=== PATIENT | male | born 1990 | race Two or more races ===

== ENCOUNTER 2019-03-21 06:41 | Day surgery (SDC) | payer OTHER ==
[~2019-03-21] VITALS: Ht 180.3 cm; Wt 115.7 kg
[2019-03-21] VITALS (10 sets, daily range): BP systolic 103–123; BP diastolic 56–65
[~2019-03-21 06:41] MED LIST: NKM; ceFAZolin 1gm IVPB IVPB ONE; celeBREX 200mg Cap **SURGERY PATIENTS ONLY ORAL ONE; oxyCONTIN 20mg tab ORAL ONE
--- NOTE | 2019-03-21 07:24 | Operative Note - PDOC ---
Operative Note Operative Note Pre-op Diagnosis: right knee medial menisecus tear Procedure: see op report Post-op Diagnosis: same as pre-op plus Operative Findings: consistent w/pre-op dx studies Anesthesia: MAC Specimen: none Complications: none Condition: stable Estimated Blood Loss: none Implant(s) used?: No Randy Quinonez MD March 21, 2019 07:24
--- NOTE | 2019-03-21 07:24 | Pre-Procedure Note/Attestation ---
Pre-Procedure Note/Attestation Complete Prior to Procedure Planned Procedure: right Procedure Narrative: knee arthroscopy, medial menisectomy Indications for Procedure Pre-Operative Diagnosis: right knee medial menisecus tear Attestation I attest that I discussed the nature of the procedure; its benefits; risks and complications; and alternatives (and the risks and benefits of such alternatives ), prior to the procedure, with the patient (or the patient's legal telephone claims representative). I attest that, if there was a reasonable possibility of needing a blood transfusion, the patient (or the patient's legal telephone claims representative) was given the [facility] standardized written summary, pursuant to the Shyam Everardo Blood Safety Act ([place] Health and Safety Code # 1645, as amended). I attest that I re-evaluated the patient just prior to the surgery and that there has been no change in the patient's H&P, except as documented below: Randy Quinonez MD March 21, 2019 07:24
[2019-03-21] MEDS ORDERED: Lidocaine 1% 10mg/ml/Epi 0.005mg/ml 30ml vial INJ ONE (09:34)
[2019-03-21] MEDS ORDERED: Kenalog-40 1ml Vial ONE (09:34)
[2019-03-21] MEDS ORDERED: EPINEPHrine 1mg/1ml Amp ONE (09:34)
[2019-03-21] MEDS ORDERED: Bupivacaine 0.25% Inj 30ml INJ ONE (09:34)
[2019-03-21] MEDS ORDERED: Duramorph PF 5mg/10ml amp ONE (09:34)
[2019-03-21] MEDS ORDERED: Ketorolac 30mg Inj ONE (09:34)
[2019-03-21] MEDS ORDERED: Dexamethasone 4mg/ml vial ONE (09:38)
[2019-03-21] MEDS ORDERED: Lidocaine 1% MPF 10mg/ml 5ml ONE (09:38)
[2019-03-21] MEDS ORDERED: Alfentanil 2ml Inj ONE (09:38)
[2019-03-21] MEDS ORDERED: LR 1000ml ONE (09:38)
[2019-03-21] MEDS ORDERED: Propofol 200mg/20ml IV ONE (09:38)
[2019-03-21] MEDS ORDERED: NS Irrig 4000ml IRRIG ONE (09:54)
[2019-03-21] MEDS ORDERED: Meperidine 50mg/ml Inj(FOR RIGORS ONLY) IVP PRN (10:00)
[2019-03-21] MEDS ORDERED: Acetaminophen (Non formulary) 100 ML IV ONE (10:00)
[2019-03-21] MEDS ORDERED: DiphenhydrAMINE 50mg/ml Inj IVP PRN (10:00)
[2019-03-21] MEDS ORDERED: LR 1000ml 1,000 ML IVLG SCH (10:00)
[2019-03-21] MEDS ORDERED: fentaNYL 100 mcg/2 mL IV PRN (10:00)
[2019-03-21] MEDS ORDERED: Labetalol 5mg/ml 20ml vial IV PRN (10:00)
[2019-03-21] MEDS ORDERED: Atropine Sulfate 0.4mg/ml inj IVP PRN (10:00)
[2019-03-21] MEDS ORDERED: HYDROcodone/Acetamin 5/325 tab ORAL PRN ×2 (10:00→18:01)
[2019-03-21] MEDS ORDERED: HYDROcodone/Acetamin 7.5/325 tab ORAL PRN (10:00)
[2019-03-21] MEDS ORDERED: Metoclopramide 10mg/2ml Inj IVP PRN (10:00)
[2019-03-21] MEDS ORDERED: Ketorolac 30mg Inj IV PRN ×2 (10:00)
[2019-03-21] MEDS ORDERED: Midazolam 2mg/2ml Inj IVP PRN (10:00)
[2019-03-21] MEDS ORDERED: LORazepam Inj 2mg/ml 1ml IV PRN (10:00)
[2019-03-21] MEDS ORDERED: Hydromorphone 0.5mg/0.5ml inj IVP PRN (10:00)
[2019-03-21] MEDS ORDERED: oxyCODONE HCL/Acetaminophen 5/325mg ORAL PRN (10:00)
--- NOTE | 2019-03-21 10:07 | Anethesia Preoperative Eval ---
Anesthesia Pre-op PMH/ROS General Date of Evaluation: March 21, 2019 Time of Evaluation: 09:38 Anesthesiologist: Naz ASA Score: ASA 2 Mallampati Score Class I : Soft palate, uvula, fauces, pillars visible Class II: Soft palate, uvula, fauces visible Class III: Soft palate, base of uvula visible Class IV: Only hard plate visible Mallampati Classification: Class II Surgeon: Cristiano Diagnosis: R Knee Pain Surgical Procedure: R Knee Arthroscopy Anesthesia History: none Family History: no anesthesia problems Allergies: Coded Allergies: No Known Allergies (Unverified , 03/20/19) Medications: see eMAR Patient NPO?: Yes Past Medical History Gastrointestinal/Genitourinary: Reports: other - Testicular CA Other: obesity - BMI 38 PSxH Narrative: L Testicle Removed 09' Anesthesia Pre-op Phys. Exam Physician Exam Last Vital Signs Date Time Temp Pulse Resp B/P (MAP) Pulse Ox O2 Delivery O2 Flow Rate FiO2 03/21/19 07:31 97.7 50 18 123/57 97 Room Air Constitutional: NAD Neurologic: CN 2-12 intact Cardiovascular: RRR Respiratory: CTA Gastrointestinal: S/NT/ND Airway Exam Mallampati Score: Class II MO: full ROM: limited Teeth: intact Anesthesia Pre-op A/P Risk Assessment & Plan Assessment: ASA 2 Plan: GA, SED Status Change Before Surgery: No Pre-Antibiotics Dru Grams Ancef IV Given Within 1 Hr of Incision: Yes Time Given: 09:51 Scott Childs MD March 21, 2019 10:07
--- NOTE | 2019-03-21 10:08 | Immediate Post-Op Evaluation ---
Immediate Post-Op Evalulation Immediate Post-Op Evalulation Procedure: R Knee Arthroscopy Date of Evaluation: March 21, 2019 Time of Evaluation: 10:35 IV Fluids: 1000 LR Blood Products: 0 Estimated Blood Loss: 3 Urinary Output: 0 Blood Pressure Systolic: 111 Blood Pressure Diastolic: 56 Pulse Rate: 58 Respiratory Rate: 16 O2 Sat by Pulse Oximetry: 100 Temperature (Fahrenheit): 97.2 Pain Score (1-10): 2 Nausea: No Vomiting: No Complications 0 Patient Status: awake, reacts, patent, extubated, none Hydration Status: adequate Dru Grams Ancef IV Given Within 1 Hr of Incision: Yes Time Given: 09:51 Scott Childs MD March 21, 2019 10:08
--- NOTE | 2019-03-21 10:11 | 48 Hour Post Anesthesia Eval ---
Post Anesthesia Evaluation Procedure: R Knee Arthroscopy Date of Evaluation: March 21, 2019 Time of Evaluation: 12:43 Blood Pressure Systolic: 108 0: 54 Pulse Rate: 62 Respiratory Rate: 18 Temperature (Fahrenheit): 98.3 O2 Sat by Pulse Oximetry: 100 Airway: patent Nausea: No Vomiting: No Pain Intensity: 2 Hydration Status: adequate Cardiopulmonary Status: Stable Mental Status/LOC: patient returned to baseline Follow-up Care/Observations: 0 Post-Anesthesia Complications: 0 Follow-up care needed: ready to discharge Scott Childs MD March 21, 2019 10:11
--- NOTE | 2019-03-21 17:30 | Operative Note - Dictated ---
DATE OF OPERATION: 03/21/2019 PREOPERATIVE DIAGNOSES: 1. Right knee medial meniscus tear. 2. Right knee periligamentous cyst. POSTOPERATIVE DIAGNOSES: 1. Right knee symptomatic medial plica. 2. Periligamentous ganglion cyst. 3. Grade 2 chondral damage, medial patellar facet. PROCEDURE: 1. Right knee arthroscopic medial lateral patellofemoral synovectomy. 2. Gentle chondroplasty, patellofemoral compartment. SURGEON: Randy Quinonez M.D. ANESTHESIA: MAC. INDICATION FOR PROCEDURE: The patient is a pleasant gentleman, who has had progressive right knee pain. He had failed conservative treatment. He had an MRI, which showed a pretty significant parameniscal cyst as well as periligamentous cyst. There was some questions about the tear of the anterior horn of meniscus. Given that he failed conservative treatment, elected to undergo right knee arthroscopic diagnostic arthroscopy and possible synovectomy, meniscectomy, chondroplasty based on intraoperative findings. Risks, limitations, expectations, and complications of procedure were discussed in detail. All questions addressed. DESCRIPTION OF PROCEDURE: After informed consent was obtained, the patient was brought to the operating room. The patient was placed under monitored anesthesia control. Right leg was prepped and draped in a sterile manner. Time-out was performed. Ancef was administered. Inferolateral stab incision was then made. Trocar was introduced into the patellofemoral compartment. It was difficult to visualize patellofemoral compartment given the hypertrophic fat pad and the synovial tissue. There was a significant medial plica that was rubbing against the medial femoral condyle. Medial compartment was entered. There was hypertrophic fat pad and synovial tissue anteriorly. Medial working portal was established. The probe was then placed in the medial compartment. Meniscus was probed and noted to be intact along with medial femoral compartment. Excision of the fat pad and synovectomy was carried out anteriorly to better visualize the anterior horn of the medial meniscus, which was intact. It was extended in the intercondylar notch and the lateral compartment to better visualize the ACL as well as the lateral compartment. The ACL was probed and noted to be intact. Lateral compartment was entered and free of meniscal chondral damage. The area of the periligamentous cyst was along the PCL. This area was debrided of any soft tissues to protect the integrity of the ligaments. Once this was completed, the camera was placed in the patellofemoral compartment and the medial plica. The fat pad was excised to better visualize the patellofemoral compartment. Once that was visualized, there was grade 2 chondral damage of the medial patellar facet. Gentle chondroplasty was performed. There was still some softening of the medial patella; however, there were no gross chondral flaps left. At this point, the instruments were removed. Portal sites was closed with 3-0 Monocryl sutures. Steri-Strips and a sterile dressing were applied. The patient was awoken and taken to recovery room with stable vital signs. ESTIMATED BLOOD LOSS: None. COMPLICATIONS: None. SPECIMENS: None. IMPLANTS: None. Randy Quinonez M.D. DR: VERNA JOB#: [id number] CC:
[2019-03-21] MEDS ORDERED: D5 1/2NS 1,000 ML IV SCH (18:01)
[2019-03-21] MEDS ORDERED: HYDROmorphone 1mg/ml Carpuject SUBQ PRN (18:01)
[2019-03-21] MEDS ORDERED: Tylenol #3 tab (300mg/30mg) ORAL PRN (18:01)
== END 2019-03-21 13:10 | disposition home or self-care (01) ==
LOC: SUR 06:41
DX: M67.51 Plica syndrome, right knee (principal); M67.461 Ganglion, right knee; M24.10 Other articular cartilage disorders, unspecified site; Z85.47 Personal history of malignant neoplasm of testis; N45.4 Abscess of epididymis or testis; E66.9 Obesity, unspecified; Z68.35 Body mass index [BMI] 35.0-35.9, adult
CPT/HCPCS: 29876; J0171; J0690; J1100; J1885; J2250; J2405; J2704; J3301; J3490; 94003; 94150